=== PATIENT | female | born 1970 | race Caucasian/White ===

== ENCOUNTER 2019-05-23 14:23 | Emergency (ER) | payer OTHER ==
[~2019-05-23] VITALS: Ht 170.2 cm; Wt 59.0 kg
== END 2019-05-23 14:50 | disposition home or self-care (01) ==
LOC: ED 14:23
DX: S61.111A Laceration without foreign body of right thumb with damage to nail, initial encounter (principal); W26.8XXA Contact with other sharp object(s), not elsewhere classified, initial encounter

== ENCOUNTER 2019-11-15 15:32 | Emergency (ER) | payer OTHER ==
[~2019-11-15] VITALS: Ht 170.2 cm; Wt 53.1 kg
== END 2019-11-15 17:09 | disposition home or self-care (01) ==
LOC: ED 15:32
DX: T14.90XA Injury, unspecified, initial encounter (principal); X58.XXXA Exposure to other specified factors, initial encounter
CPT/HCPCS: 36415; 84460; 86703; 86707; 86803; 87350; 96372; 99283-25

== ENCOUNTER 2022-09-08 07:20 | Day surgery (SDC) | payer OTHER ==
--- NOTE | 2022-09-08 09:23 | NUR ---
09/08/22 0923 Michelle Valdivia 0919-PT TO PACU IN POSTION. EYES OPEN BUT PT REMAINS DROWSY. PT DENIES PAIN AND NAUSEA. BREATHING EASY AND UNLABORED. SPO2 >95% ON 3 L O2 VIA NC. PT EDUCATED ABOUT POC IN PACU AND PASSING GAS. 922-PT KEEPS EYES OPEN. BREATHING EASY AND UNLABORED. SPO2 >95% O2 TITRATED DOWN TO ROOM AIR.
--- NOTE | 2022-09-08 10:08 | NUR ---
PT ALERT, ORIENTED AND SUPPORTED BY HER NENO. PT HERE FOR FIRST SCOPE, SOMEWHAT ANXIOUS.GAVE ENCOURAGEMENT AND COMFORT. ALL QUESTIONS WERE ANSWERED. PT REQUESTED PRAYER. NENO WILL RETURN FOR DC.
--- NOTE | 2022-09-10 14:56 | PATH ---
[facility] [address] [facility] [place] [address] Signed SPECIMEN(S): A COLON POLYP AT 60 CM SPECIMEN SOURCE: A. COLON POLYP AT 60 CM CLINICAL HISTORY: Initial screening colonoscopy FINAL PATHOLOGIC DIAGNOSIS: Colon polyp at 60 cm: - Hyperplastic polyp (one fragment). JVR:silvina:C2NR MICROSCOPIC EXAMINATION: Histologic sections of all submitted blocks are examined by light microscopy. These findings, together with the gross examination, support the pathologic diagnosis. GROSS DESCRIPTION: The specimen, labeled "MZ, colon polyp at 60 cm," is received in formalin and consists of one anderson soft tissue fragment that measures 0.3 cm in greatest dimension. The specimen is entirely submitted in cassette (A1). VB (under the direct supervision of a pathologist) The Gross Description was prepared using a voice recognition system. The report was reviewed for accuracy; however, sound-alike word errors, addition and/or deletions may occur. If there is any question about this report, please contact Client Services. PERFORMING LABORATORY: The technical component was performed by [email or web address], [address] [place] [id number] (CLIA# [id number]). Professional interpretation was performed by [facility], [address] [place] [id number] (CLIA#: [id number]). Diagnostician: Sukhdeep Sanchez MD Pathologist Electronically Signed 09/10/2022 PATIENT NAME: ULISES KERR WON PATHOLOGY DATE OF : 74 REPORT #: [id number] PHYSICIAN: LISA FOLEY PCP: SHER EM MD REPORT IS CONFIDENTIAL AND NOT TO BE RELEASED WITHOUT AUTHORIZATION
--- NOTE | 2022-09-10 16:53 | OR ---
[facility] [address] [place], [place] [address] Signed DATE OF OPERATION: 09/08/2022 SURGEON: Mikel Arevalo MD PREOPERATIVE DIAGNOSIS: Colon screening. POSTOPERATIVE DIAGNOSIS: Small polyp at 60 cm (excised). PROCEDURES: Total colonoscopy to cecum with cold morcellation polypectomy x1. ANESTHESIA: Intravenous sedation; fentanyl 150 mcg, Versed 6 mg. INDICATIONS: This 51-year-old white woman is a patient of Dr. Patterson and here for screening colonoscopy. She is in very good health, having no symptoms of bleeding, diarrhea, or constipation. She has had no prior screening with colonoscopy. Past medical history is relatively unremarkable. She has no family history of colon cancer. She understands the risks of bleeding, infection, and perforation related to colonoscopy and wished to proceed. FINDINGS: The prep was excellent. Complete colonoscopy was undertaken to the cecum without question. She had one small polyp at 60 cm, which was excised without problem. DESCRIPTION OF PROCEDURE: The patient was brought to the endoscopy suite and placed in lateral decubitus position given intravenous sedation to the point of slurred speech and nystagmus. Digital rectal examination was normal. An Olympus video colonoscope was passed into the rectum and manipulated throughout the colon ultimately intubating the cecum itself. The ileocecal valve and appendiceal orifice were normal. Scope was withdrawn from that point and examination throughout showed no sign of abnormality until approximately 60 cm from the anal verge, where a small polyp was noted, this was excised with cold morcellation technique. Further withdrawal of scope showed no other abnormality. The scope was withdrawn, and the patient was taken to the recovery room in good condition. Electronically Signed By: MIKEL AREVALO MD 09/10/22 9511 PATIENT NAME: ULISES KERR WON OPERATIVE REPORT DATE OF : 74 REPORT #: [id number] PHYSICIAN: MIKEL AREVALO MD PCP: SHER PATTERSON MD REPORT IS CONFIDENTIAL AND NOT TO BE RELEASED WITHOUT AUTHORIZATION [address] [place], [place] [address] Signed CONCLUDING DIAGNOSIS: Polyps x1. PLAN: Recommend repeat colonoscopy in 5 years or sooner if clinically indicated. She will return to the ongoing of Dr. Patterson. MD MICHEAL Scott/MODL /[id number] Copies: ~ Electronically Signed By: MIKEL AREVALO MD 09/10/22 1653 PATIENT NAME: ULISES KERR WON OPERATIVE REPORT DATE OF : 74 REPORT #: [id number] PHYSICIAN: MIKEL AREVALO MD PCP: SHER PATTERSON MD REPORT IS CONFIDENTIAL AND NOT TO BE RELEASED WITHOUT AUTHORIZATION
== END 2022-09-08 09:45 | disposition home or self-care (01) ==
LOC: OPS 07:20 → DS 07:20 → OPS 09:45
PROVIDERS: ATTEND Surgery
PROC: 0DBE8ZX Excision of Large Intestine, Via Natural or Artificial Opening Endoscopic, Diagnostic (ICD-10-PCS; principal; 2022-09-08 08:30)
DX: Z12.11 Encounter for screening for malignant neoplasm of colon (principal); K63.5 Polyp of colon; Z88.0 Allergy status to penicillin; Z78.0 Asymptomatic menopausal state; Z80.3 Family history of malignant neoplasm of breast
CPT/HCPCS: 36415; 84703; 99153; G0500; J2250; J3010; J7121